=== PATIENT | female | born 1970 | race Caucasian/White ===

== ENCOUNTER 2018-08-09 00:36 | Inpatient (IN) | payer MEDICAID, OTHER ==
[~2018-08-09] VITALS: Ht 165.1 cm; Wt 84.8 kg
[2018-08-09] VITALS (8 sets, daily range): BP systolic 123–146; BP diastolic 75–90
[2018-08-09 08:35] LABS: CLARITY URINE CLOUDY (CLEAR); COLOR URINE YELLOW (YELLOW); KETONES URINE TRACE (NEGATIVE); LEUKOCYTE ESTERASE URINE NEGATIVE (NEGATIVE); NITRITE URINE NEGATIVE (NEGATIVE); OCCULT BLOOD URINE 2+ (NEGATIVE); PROTEIN URINE 4+ (NEGATIVE); SPECIFIC GRAVITY URINE 1.026 (1.005-1.030); UROBILINOGEN URINE 0.2 E.U./dL (0.2-1.0)
[2018-08-09 08:48] LABS: CHLORIDE 103 mEq/L (98-107)
[2018-08-09 09:02] LABS: BASOPHILS % 0.5 % (0.0-2.0); EOSINOPHILS % 0.3 % (0.0-5.0); HEMATOCRIT. 37.6 % (36.0-48.0); HEMOGLOBIN. 12.1 g/dL (12.0-16.0); MEAN CORPUSCULAR HEMOGLOBIN 28.6 pg (28.0-32.0); MEAN CORPUSCULAR VOLUME 88.5 fL (81.0-99.0); MEAN PLATELET VOLUME 9.8 fl (7.4-10.4); MONOCYTES % 6.4 % (2.0-8.0); NEUTROPHILS % 79.8 % (40.0-76.0); PLATELET 313 x1000/uL (130-400); RED BLOOD CELL COUNT 4.24 mill/uL (4.2-5.4); RED CELL DISTRIBUTION WIDTH 16.5 % (11.6-14.6)
[2018-08-09] MEDS ORDERED: CLONIDINE 0.1MG TABLET PO PRN ×2 (10:30)
[2018-08-09] MEDS ORDERED: ENOXAPARIN 60MG/0.6ML SYR SUBCUT NR (11:00)
[2018-08-09] MEDS ORDERED: SODIUM POLYSTYRENE SULFONATE 15 G/60 ML BOT PO NR (11:00)
[2018-08-09] MEDS: ASPIRIN 325MG EC TABLET PO SCH (11:04)
[2018-08-09] MEDS: AMLODIPINE 5MG TABLET PO SCH ×2 (11:04→21:48)
[2018-08-09] MEDS: NITROGLYCERIN OINT 1GM/INCH UDPKT TD SCH ×2 (11:05→18:10)
[2018-08-09] MEDS ORDERED: DOCUSATE SODIUM 100MG CAPSULE PO PRN (12:15)
[2018-08-09] MEDS ORDERED: ACETAMINOPHEN 325MG TABLET PO PRN (12:15)
[2018-08-09] MEDS ORDERED: NA PHOS,M-B/NA PHOS,DI-BA ENEMA 118ML PR PRN (12:15)
[2018-08-09] MEDS ORDERED: MAGNESIUM/ALUMINUM HYDROXIDE/SIMETHICONE 30ML UDC PO PRN (12:15)
[2018-08-09] MEDS ORDERED: ONDANSETRON HCL 4MG/2ML INJ IV PRN (12:15)
[2018-08-09] MEDS ORDERED: MORPHINE SULFATE 4 MG/ML CPJ (NOT FOR IM USE) IV PRN (12:15)
[2018-08-09] MEDS ORDERED: NITROGLYCERIN 0.4MG TABLET SL SL PRN (12:15)
[2018-08-09] MEDS ORDERED: TRAMADOL 50MG TABLET PO PRN (12:15)
[2018-08-09] MEDS: BLOOD SUGAR DIAGNOSTIC STRIP TEST SCH ×2 (17:51→21:48)
[2018-08-09] MEDS: INSULIN LISPRO 100 UNITS/ML SUBCUT SCH ×3 (17:51→21:00)
[2018-08-09] MEDS ORDERED: CLONIDINE 0.2MG TABLET PO PRN (19:30)
[2018-08-09] MEDS ORDERED: ZOLPIDEM TARTRATE 5MG TABLET PO PRN (21:30)
[2018-08-09] MEDS ORDERED: DEXTROSE 50% WATER 50ML SYRINGE IV PRN (21:30)
[2018-08-09] MEDS: FAMOTIDINE 20MG TABLET PO SCH (21:48)
[2018-08-09] MEDS: GUAIFENESIN 200MG/10ML SUGAR FREE UDC PO PRN (22:44)
[2018-08-10] VITALS (45 sets, daily range): BP systolic 122–181; BP diastolic 58–99
[2018-08-10] MEDS: NITROGLYCERIN OINT 1GM/INCH UDPKT TD SCH ×5 (01:21→23:18)
[2018-08-10] MEDS ORDERED: ASPI-1159 MT (06:05)
[2018-08-10] MEDS ORDERED: FURO40TA5 PO (06:05)
[2018-08-10] MEDS ORDERED: METF-816 MT (06:05)
[2018-08-10 06:29] LABS: BASOPHILS % 0.4 % (0.0-2.0); EOSINOPHILS % 0.6 % (0.0-5.0); HEMOGLOBIN. 11.3 g/dL (12.0-16.0); LYMPHOCYTES % 10.6 % (20.0-50.0); MEAN CORPUSCULAR VOLUME 95.8 fL (81.0-99.0); MEAN PLATELET VOLUME 9.9 fl (7.4-10.4); MONOCYTES % 6.8 % (2.0-8.0); NEUTROPHILS % 81.6 % (40.0-76.0); PLATELET 276 x1000/uL (130-400); RED BLOOD CELL COUNT 3.34 mill/uL (4.2-5.4); RED CELL DISTRIBUTION WIDTH 16.3 % (11.6-14.6)
[2018-08-10 06:37] LABS: D-DIMER 0.88 mg/L FEU (<0.50); INR 1.1; PROTHROMBIN TIME 11.5 sec (9.1-11.1)
[2018-08-10 07:01] LABS: CHLORIDE 106 mEq/L (98-107)
[2018-08-10 07:11] LABS: LDL CHOLESTEROL 114 mg/dL (5-100)
[2018-08-10 07:12] LABS: CREATINE KINASE 213 IU/L (26-192)
[2018-08-10 07:13] LABS: HDL CHOLESTEROL 28 mg/dL (40-59)
[2018-08-10] MEDS: INSULIN LISPRO 100 UNITS/ML SUBCUT SCH ×4 (08:20→20:28)
[2018-08-10] MEDS: ASPIRIN 325MG EC TABLET PO SCH (08:30)
[2018-08-10] MEDS: BLOOD SUGAR DIAGNOSTIC STRIP TEST SCH ×4 (08:30→20:28)
[2018-08-10] MEDS: AMLODIPINE 5MG TABLET PO SCH ×2 (08:31→20:14)
[2018-08-10] MEDS: ENOXAPARIN 80MG/0.8ML SYR SUBCUT SCH (08:31)
[2018-08-10 09:33] LABS: *AMPHETAMINES SCREEN URINE NEGATIVE (NEGATIVE); *BARBITURATES SCREEN URINE NEGATIVE (NEGATIVE)
[2018-08-10 09:34] LABS: *BENZODIAZEPINES SCREEN URINE NEGATIVE (NEGATIVE); *COCAINE SCREEN URINE NEGATIVE (NEGATIVE); CANNABINOID URINE SCREEN NEGATIVE (NEGATIVE); METHADONE URINE SCREEN NEGATIVE (NEGATIVE); OPIATES URINE SCREEN NEGATIVE (NEGATIVE)
[2018-08-10 09:35] LABS: PHENCYCLIDINE URINE SCREEN NEGATIVE (NEGATIVE)
[2018-08-10] MEDS ORDERED: SODIUM CHLORIDE 0.45% 500 ML IV SCH (09:45)
[2018-08-10] MEDS ORDERED: ALBUMIN HUMAN 25GM/100ML (25%) IV NR (16:30)
[2018-08-10] MEDS: FAMOTIDINE 20MG TABLET PO SCH (20:14)
[2018-08-10] MEDS: ATORVASTATIN CALCIUM 20MG TABLET PO SCH (20:14)
[2018-08-11] VITALS (38 sets, daily range): BP systolic 121–171; BP diastolic 73–99
[2018-08-11] MEDS: NITROGLYCERIN OINT 1GM/INCH UDPKT TD SCH ×4 (05:35→23:40)
[2018-08-11 06:25] LABS: HEMATOCRIT. 33.2 % (36.0-48.0); HEMOGLOBIN. 11.8 g/dL (12.0-16.0); MEAN CORPUSCULAR HEMOGLOBIN 33.7 pg (28.0-32.0); MEAN CORPUSCULAR VOLUME 94.8 fL (81.0-99.0); MEAN PLATELET VOLUME 9.6 fl (7.4-10.4); PLATELET 309 x1000/uL (130-400); RED BLOOD CELL COUNT 3.51 mill/uL (4.2-5.4); RED CELL DISTRIBUTION WIDTH 16.2 % (11.6-14.6)
[2018-08-11 06:59] LABS: CHLORIDE 105 mEq/L (98-107)
[2018-08-11 07:06] LABS: PHOSPHORUS 4.5 mg/dL (2.5-4.9)
[2018-08-11 07:07] LABS: CREATINE KINASE 143 IU/L (26-192)
[2018-08-11] MEDS: BLOOD SUGAR DIAGNOSTIC STRIP TEST SCH ×4 (07:50→20:58)
[2018-08-11] MEDS: AMLODIPINE 5MG TABLET PO SCH ×2 (08:39→20:45)
[2018-08-11] MEDS: ASPIRIN 325MG EC TABLET PO SCH (08:39)
[2018-08-11] MEDS: ENOXAPARIN 80MG/0.8ML SYR SUBCUT SCH (08:39)
[2018-08-11] MEDS: INSULIN LISPRO 100 UNITS/ML SUBCUT SCH ×4 (08:40→21:00)
[2018-08-11 08:52] LABS: PLATELET ESTIMATE NORMAL
[2018-08-11] MEDS: HYDRALAZINE HCL 50MG TABLET PO SCH ×2 (12:34→22:02)
[2018-08-11 16:31] LABS: HEPATITIS B SURFACE ANTIGEN NEGATIVE
[2018-08-11 16:58] LABS: HEPATITIS A AB IGM NEGATIVE (NEGATIVE)
[2018-08-11] MEDS: ATORVASTATIN CALCIUM 20MG TABLET PO SCH (20:44)
[2018-08-11] MEDS: FAMOTIDINE 20MG TABLET PO SCH (20:45)
[2018-08-12] VITALS (34 sets, daily range): BP systolic 75–140; BP diastolic 33–100
[2018-08-12] MEDS: NITROGLYCERIN OINT 1GM/INCH UDPKT TD SCH ×4 (05:20→23:25)
[2018-08-12] MEDS: HYDRALAZINE HCL 50MG TABLET PO SCH (05:21)
[2018-08-12 06:02] LABS: HEMATOCRIT. 34.7 % (36.0-48.0); HEMOGLOBIN. 11.4 g/dL (12.0-16.0); MEAN CORPUSCULAR VOLUME 91.4 fL (81.0-99.0); MEAN PLATELET VOLUME 9.2 fl (7.4-10.4); PLATELET 343 x1000/uL (130-400); RED CELL DISTRIBUTION WIDTH 16.3 % (11.6-14.6)
[2018-08-12 06:04] LABS: PARTIAL THROMBOPLASTIN TIME 33.6 sec (23.4-31.0); PROTHROMBIN TIME 10.4 sec (9.1-11.1)
[2018-08-12 06:23] LABS: PHOSPHORUS 4.1 mg/dL (2.5-4.9)
[2018-08-12 06:28] LABS: CREATINE KINASE MB FRACTION 2.6 ng/mL (0.5-3.6)
[2018-08-12] MEDS: ASPIRIN 325MG EC TABLET PO SCH (07:51)
[2018-08-12] MEDS: INSULIN LISPRO 100 UNITS/ML SUBCUT SCH ×4 (07:52→20:23)
[2018-08-12] MEDS: BLOOD SUGAR DIAGNOSTIC STRIP TEST SCH ×4 (07:52→20:24)
[2018-08-12] MEDS: AMLODIPINE 5MG TABLET PO SCH ×3 (07:53→20:24)
[2018-08-12 10:37] LABS: NUCLEATED RED BLOOD CELLS 1 /100 WBC; PLATELET ESTIMATE NORMAL
[2018-08-12] MEDS: CARVEDILOL 3.125 MG TABLET PO SCH ×2 (11:26→20:22)
[2018-08-12] MEDS ORDERED: FUROSEMIDE 40MG/4ML VIAL IVP SCH (13:00)
[2018-08-12] MEDS: HYDRALAZINE HCL 25MG TABLET PO SCH ×2 (13:15→22:00)
[2018-08-12] MEDS: ATORVASTATIN CALCIUM 20MG TABLET PO SCH (20:22)
[2018-08-12] MEDS: FAMOTIDINE 20MG TABLET PO SCH (20:22)
[2018-08-13] VITALS (34 sets, daily range): BP systolic 90–134; BP diastolic 48–79
[2018-08-13 05:35] LABS: CHLORIDE 105 mEq/L (98-107)
[2018-08-13 05:47] LABS: PHOSPHORUS 4.7 mg/dL (2.5-4.9)
[2018-08-13] MEDS: HYDRALAZINE HCL 25MG TABLET PO SCH ×3 (06:00→22:46)
[2018-08-13] MEDS: NITROGLYCERIN OINT 1GM/INCH UDPKT TD SCH ×3 (06:00→18:27)
[2018-08-13 06:04] LABS: HEMATOCRIT. 34.1 % (36.0-48.0); HEMOGLOBIN. 10.9 g/dL (12.0-16.0); MEAN CORPUSCULAR HEMOGLOBIN 28.5 pg (28.0-32.0); MEAN CORPUSCULAR VOLUME 89.2 fL (81.0-99.0); MEAN PLATELET VOLUME 9.3 fl (7.4-10.4); PLATELET 319 x1000/uL (130-400); RED BLOOD CELL COUNT 3.82 mill/uL (4.2-5.4); RED CELL DISTRIBUTION WIDTH 16.9 % (11.6-14.6)
[2018-08-13 07:17] LABS: PLATELET ESTIMATE NORMAL
[2018-08-13] MEDS: INSULIN LISPRO 100 UNITS/ML SUBCUT SCH ×4 (08:20→20:30)
[2018-08-13] MEDS: CARVEDILOL 3.125 MG TABLET PO SCH ×3 (08:23→22:47)
[2018-08-13] MEDS: BLOOD SUGAR DIAGNOSTIC STRIP TEST SCH ×4 (08:24→20:24)
[2018-08-13] MEDS: AMLODIPINE 5MG TABLET PO SCH ×2 (08:24→20:21)
[2018-08-13] MEDS: ASPIRIN 81MG EC TABLET PO SCH ×3 (08:24→17:53)
[2018-08-13] MEDS ORDERED: ALBUMIN HUMAN 25GM/100ML (25%) IV SCH (09:35)
[2018-08-13 10:26] LABS: BG BASE EXCESS -4.7 mmol/L (-2.0-2.0); BG CARBOXYHEMOGLOBIN 0.7 % (0.5-1.5); BG DEOXYHEMOGLOBIN 7.1 % (0.0-5.0); BG FRACTION INSPIRED OXYGEN 30; BG HCO3 ACT 18.5 mmol/L (22.0-26.0); BG METHEMOGLOBIN 0.2 % (0.0-1.5); BG OXYGEN SATURATION 92.8 % (92.0-98.5); BG PCO2 28.7 mmHg (35.0-45.0); BG PH 7.426 (7.350-7.450); BG PO2 69.9 mmHg (75.0-100.0); BG SAMPLE SITE RIGHT RADIAL; BG VENT MODE NASAL CANNULA
[2018-08-13] MEDS: ENOXAPARIN 30MG/0.3ML SYR SUBCUT SCH (14:19)
[2018-08-13] MEDS: ATORVASTATIN CALCIUM 20MG TABLET PO SCH (20:21)
[2018-08-13] MEDS: FAMOTIDINE 20MG TABLET PO SCH (20:21)
[2018-08-13] MEDS: GUAIFENESIN 200MG/10ML SUGAR FREE UDC PO PRN (20:30)
[2018-08-14] VITALS (19 sets, daily range): BP systolic 93–133; BP diastolic 53–72
[2018-08-14] MEDS: NITROGLYCERIN OINT 1GM/INCH UDPKT TD SCH ×5 (01:04→23:53)
[2018-08-14] MEDS: GUAIFENESIN 200MG/10ML SUGAR FREE UDC PO PRN ×2 (04:32→19:22)
[2018-08-14] MEDS: HYDRALAZINE HCL 25MG TABLET PO SCH ×3 (06:18→22:00)
[2018-08-14] MEDS: CARVEDILOL 3.125 MG TABLET PO SCH ×3 (06:19→22:00)
[2018-08-14] MEDS: BLOOD SUGAR DIAGNOSTIC STRIP TEST SCH ×4 (06:21→21:42)
[2018-08-14 06:50] LABS: BASOPHILS % 0.3 % (0.0-2.0); EOSINOPHILS % 0.1 % (0.0-5.0); HEMOGLOBIN. 10.1 g/dL (12.0-16.0); LYMPHOCYTES % 9.4 % (20.0-50.0); MEAN CORPUSCULAR HEMOGLOBIN 32.7 pg (28.0-32.0); MEAN CORPUSCULAR VOLUME 94.1 fL (81.0-99.0); MEAN PLATELET VOLUME 9.3 fl (7.4-10.4); MONOCYTES % 4.9 % (2.0-8.0); NEUTROPHILS % 85.3 % (40.0-76.0); PLATELET 292 x1000/uL (130-400); RED BLOOD CELL COUNT 3.08 mill/uL (4.2-5.4); RED CELL DISTRIBUTION WIDTH 16.2 % (11.6-14.6)
[2018-08-14] MEDS: INSULIN LISPRO 100 UNITS/ML SUBCUT SCH ×4 (07:20→21:00)
[2018-08-14 07:22] LABS: PHOSPHORUS 5.9 mg/dL (2.5-4.9)
[2018-08-14] MEDS: ASPIRIN 81MG EC TABLET PO SCH ×2 (08:50→17:17)
[2018-08-14] MEDS: AMLODIPINE 5MG TABLET PO SCH ×2 (08:51→21:00)
[2018-08-14] MEDS: FUROSEMIDE 40MG/4ML VIAL IVP SCH (14:06)
[2018-08-14] MEDS: ENOXAPARIN 30MG/0.3ML SYR SUBCUT SCH (14:07)
[2018-08-14] MEDS: ATORVASTATIN CALCIUM 20MG TABLET PO SCH (21:39)
[2018-08-14] MEDS: FAMOTIDINE 20MG TABLET PO SCH (21:39)
[2018-08-15] VITALS (16 sets, daily range): BP systolic 99–132; BP diastolic 39–82
[2018-08-15] MEDS: GUAIFENESIN 200MG/10ML SUGAR FREE UDC PO PRN ×4 (00:16→20:57)
[2018-08-15] MEDS: HYDRALAZINE HCL 25MG TABLET PO SCH ×3 (06:00→22:00)
[2018-08-15] MEDS: CARVEDILOL 3.125 MG TABLET PO SCH ×3 (06:33→22:31)
[2018-08-15] MEDS: NITROGLYCERIN OINT 1GM/INCH UDPKT TD SCH ×3 (06:33→17:21)
[2018-08-15] MEDS: BLOOD SUGAR DIAGNOSTIC STRIP TEST SCH ×4 (06:36→21:01)
[2018-08-15 06:54] LABS: INR 1.1; PARTIAL THROMBOPLASTIN TIME 32.2 sec (23.4-31.0); PROTHROMBIN TIME 11.2 sec (9.1-11.1)
[2018-08-15 07:11] LABS: BASOPHILS % 0.1 % (0.0-2.0); EOSINOPHILS % 0.2 % (0.0-5.0); HEMATOCRIT. 30.4 % (36.0-48.0); HEMOGLOBIN. 10.5 g/dL (12.0-16.0); LYMPHOCYTES % 8.2 % (20.0-50.0); MEAN CORPUSCULAR VOLUME 93.3 fL (81.0-99.0); MEAN PLATELET VOLUME 9.5 fl (7.4-10.4); MONOCYTES % 7.2 % (2.0-8.0); NEUTROPHILS % 84.3 % (40.0-76.0); PLATELET 317 x1000/uL (130-400); RED BLOOD CELL COUNT 3.26 mill/uL (4.2-5.4); RED CELL DISTRIBUTION WIDTH 16.7 % (11.6-14.6)
[2018-08-15] MEDS: INSULIN LISPRO 100 UNITS/ML SUBCUT SCH ×4 (07:20→21:00)
[2018-08-15 08:13] LABS: PHOSPHORUS 5.7 mg/dL (2.5-4.9)
[2018-08-15] MEDS: AMLODIPINE 5MG TABLET PO SCH ×2 (09:01→20:46)
[2018-08-15] MEDS: ASPIRIN 81MG EC TABLET PO SCH ×2 (09:02→16:25)
[2018-08-15] MEDS: FUROSEMIDE 40MG/4ML VIAL IVP SCH ×2 (09:02→20:46)
[2018-08-15] MEDS ORDERED: METOLAZONE 10MG TABLET PO NR (11:00)
[2018-08-15] MEDS: ENOXAPARIN 30MG/0.3ML SYR SUBCUT SCH (14:34)
[2018-08-15] MEDS: FAMOTIDINE 20MG TABLET PO SCH (20:46)
[2018-08-15] MEDS: ATORVASTATIN CALCIUM 20MG TABLET PO SCH (20:47)
[2018-08-16] VITALS (16 sets, daily range): BP systolic 111–139; BP diastolic 42–81
[2018-08-16] MEDS: IPRATROPIUM/ALBUTEROL 0.5-3(2.5)MG/3ML NEB INH PRN (00:31)
[2018-08-16] MEDS: NITROGLYCERIN OINT 1GM/INCH UDPKT TD SCH ×4 (00:53→17:23)
[2018-08-16] MEDS: GUAIFENESIN 200MG/10ML SUGAR FREE UDC PO PRN ×2 (01:05→05:58)
[2018-08-16] MEDS: HYDRALAZINE HCL 25MG TABLET PO SCH ×3 (05:58→21:30)
[2018-08-16] MEDS: BLOOD SUGAR DIAGNOSTIC STRIP TEST SCH ×4 (05:58→21:20)
[2018-08-16] MEDS: CARVEDILOL 3.125 MG TABLET PO SCH ×3 (06:01→21:31)
[2018-08-16 07:00] LABS: HEMATOCRIT. 29.1 % (36.0-48.0); HEMOGLOBIN. 10.2 g/dL (12.0-16.0); MEAN CORPUSCULAR HEMOGLOBIN 32.9 pg (28.0-32.0); MEAN CORPUSCULAR VOLUME 94.4 fL (81.0-99.0); MEAN PLATELET VOLUME 9.5 fl (7.4-10.4); PLATELET 331 x1000/uL (130-400); RED BLOOD CELL COUNT 3.09 mill/uL (4.2-5.4); RED CELL DISTRIBUTION WIDTH 16.2 % (11.6-14.6)
[2018-08-16] MEDS: INSULIN LISPRO 100 UNITS/ML SUBCUT SCH ×4 (07:20→21:29)
[2018-08-16] MEDS: AMLODIPINE 5MG TABLET PO SCH ×2 (08:02→21:30)
[2018-08-16] MEDS: ASPIRIN 81MG EC TABLET PO SCH ×2 (08:02→17:23)
[2018-08-16] MEDS: FUROSEMIDE 40MG/4ML VIAL IVP SCH ×2 (08:02→21:31)
[2018-08-16 10:54] LABS: NUCLEATED RED BLOOD CELLS 1 /100 WBC; PLATELET ESTIMATE NORMAL
[2018-08-16] MEDS: ENOXAPARIN 30MG/0.3ML SYR SUBCUT SCH (13:02)
[2018-08-16 13:06] LABS: A/G RATIO 0.7 (0.7-1.7); ALBUMIN 2.2 g/dL (2.9-4.4); ALPHA-1-GLOBULIN 0.4 g/dL (0.0-0.4); ALPHA-2-GLOBULIN 0.8 g/dL (0.4-1.0); BETA GLOBULIN 0.8 g/dL (0.7-1.3); GAMMA GLOBULINS 1.4 g/dL (0.4-1.8); GLOBULIN TOTAL 3.3 g/dL (2.2-3.9); M-SPIKE Not Observed g/dL (Not Observed); TOTAL PROTEIN SERUM 5.5 g/dL (6.0-8.5)
[2018-08-16] MEDS: CALCIUM ACETATE 667MG CAPSULE PO SCH (17:23)
[2018-08-16] MEDS: FAMOTIDINE 20MG TABLET PO SCH (21:30)
[2018-08-16] MEDS: ATORVASTATIN CALCIUM 20MG TABLET PO SCH (21:30)
[2018-08-17] VITALS (95 sets, daily range): BP systolic 49–239; BP diastolic 28–120
[2018-08-17] MEDS: NITROGLYCERIN OINT 1GM/INCH UDPKT TD SCH ×5 (01:03→17:56)
[2018-08-17] MEDS: PROPOFOL 10MG/ML 100ML 100 ML IV PRN ×3 (01:39→23:52)
[2018-08-17 01:52] LABS: BG BASE EXCESS -0.6 mmol/L (-2.0-2.0); BG CARBOXYHEMOGLOBIN 0.2 % (0.5-1.5); BG DEOXYHEMOGLOBIN 1.3 % (0.0-5.0); BG FRACTION INSPIRED OXYGEN 100; BG METHEMOGLOBIN 0.3 % (0.0-1.5); BG OXYGEN SATURATION 98.7 % (92.0-98.5); BG OXYHEMOGLOBIN 98.2 % (94.0-97.0); BG PCO2 29.9 mmHg (35.0-45.0); BG PH 7.484 (7.350-7.450); BG PO2 138.9 mmHg (75.0-100.0); BG SAMPLE SITE RIGHT RADIAL; BG TIDAL VOLUME(mL) 450 mL; BG TOTAL HEMOGLOBIN 12.1 g/dL (12.0-18.0); BG VENT MODE VENT - A/C; BG VENT RATE 14 set
[2018-08-17 03:24] LABS: HEMATOCRIT. 32.8 % (36.0-48.0); HEMOGLOBIN. 10.5 g/dL (12.0-16.0); MEAN CORPUSCULAR HEMOGLOBIN 28.7 pg (28.0-32.0); MEAN CORPUSCULAR VOLUME 89.5 fL (81.0-99.0); MEAN PLATELET VOLUME 9.3 fl (7.4-10.4); PLATELET 340 x1000/uL (130-400); RED BLOOD CELL COUNT 3.67 mill/uL (4.2-5.4); RED CELL DISTRIBUTION WIDTH 16.3 % (11.6-14.6)
[2018-08-17 03:32] LABS: PHOSPHORUS 4.7 mg/dL (2.5-4.9)
[2018-08-17] MEDS: CARVEDILOL 3.125 MG TABLET PO SCH ×3 (05:08→22:00)
[2018-08-17] MEDS: HYDRALAZINE HCL 25MG TABLET PO SCH ×3 (05:08→22:00)
[2018-08-17] MEDS ORDERED: AMIODARONE HCL 150 MG in DEXT 5% WATER 100 ML IV NR (05:15)
[2018-08-17 05:16] LABS: ALBUMIN URINE 48.2 % (.); ALPHA-1-GLOBULIN URINE 11.5 % (.); ALPHA-2-GLOBULIN URINE 11.4 % (.); BETA GLOBULIN URINE 11.5 % (.); GAMMA GLOBULIN URINE 17.4 % (.); TOTAL PROTEIN RANDOM URINE 703.2 mg/dL (Not Estab.)
[2018-08-17] MEDS: NOREPINEPHRINE 32 MG in DEXT 5% WATER 468 ML IV PRN (05:40)
[2018-08-17] MEDS: VASOPRESSIN 10 UNIT in SODIUM CHLORIDE 0.9% 99.5 ML IV PRN ×2 (05:41→09:25)
[2018-08-17] MEDS: PHENYLEPHRINE 40 MG in DEXT 5% WATER 246 ML IV PRN ×4 (05:42→15:31)
[2018-08-17] MEDS: AMIODARONE HCL 900 MG in DEXT 5% WATER 482 ML IV PRN (05:43)
[2018-08-17] MEDS: INSULIN LISPRO 100 UNITS/ML SUBCUT SCH ×3 (05:54→17:39)
[2018-08-17 06:10] LABS: BASOPHILS % 0.1 % (0.0-2.0); HEMOGLOBIN. 11.1 g/dL (12.0-16.0); LYMPHOCYTES % 8.8 % (20.0-50.0); MEAN CORPUSCULAR HEMOGLOBIN 30.4 pg (28.0-32.0); MEAN CORPUSCULAR VOLUME 93.3 fL (81.0-99.0); MEAN PLATELET VOLUME 9.9 fl (7.4-10.4); MONOCYTES % 3.7 % (2.0-8.0); NEUTROPHILS % 87.4 % (40.0-76.0); PLATELET 293 x1000/uL (130-400); RED BLOOD CELL COUNT 3.65 mill/uL (4.2-5.4)
[2018-08-17] MEDS: BLOOD SUGAR DIAGNOSTIC STRIP TEST SCH ×3 (06:13→17:29)
[2018-08-17 07:23] LABS: BG BASE EXCESS -6.5 mmol/L (-2.0-2.0); BG CARBOXYHEMOGLOBIN 0.8 % (0.5-1.5); BG DEOXYHEMOGLOBIN 10.6 % (0.0-5.0); BG HCO3 ACT 17.8 mmol/L (22.0-26.0); BG METHEMOGLOBIN 0.4 % (0.0-1.5); BG OXYGEN SATURATION 89.3 % (92.0-98.5); BG OXYHEMOGLOBIN 88.2 % (94.0-97.0); BG PCO2 31.7 mmHg (35.0-45.0); BG PH 7.367 (7.350-7.450); BG PO2 64.1 mmHg (75.0-100.0); BG SAMPLE SITE RIGHT RADIAL; BG TIDAL VOLUME(mL) 450 mL; BG TOTAL HEMOGLOBIN 12.3 g/dL (12.0-18.0); BG VENT MODE VENT - A/C; BG VENT RATE 14 set
[2018-08-17 08:00] LABS: PHOSPHORUS 5.5 mg/dL (2.5-4.9)
[2018-08-17] MEDS: ASPIRIN 81MG EC TABLET PO SCH ×2 (08:10→17:36)
[2018-08-17] MEDS: CALCIUM ACETATE 667MG CAPSULE PO SCH ×3 (08:10→17:36)
[2018-08-17] MEDS: AMLODIPINE 5MG TABLET PO SCH ×2 (08:11→21:00)
[2018-08-17 08:23] LABS: PLATELET ESTIMATE NORMAL
[2018-08-17] MEDS: FUROSEMIDE 40MG/4ML VIAL IVP SCH ×2 (08:46→22:47)
[2018-08-17] MEDS: IPRATROPIUM/ALBUTEROL 0.5-3(2.5)MG/3ML NEB INH PRN (09:16)
[2018-08-17 09:20] LABS: BG BASE EXCESS -2.2 mmol/L (-2.0-2.0); BG CARBOXYHEMOGLOBIN 0.5 % (0.5-1.5); BG DEOXYHEMOGLOBIN 8.7 % (0.0-5.0); BG FRACTION INSPIRED OXYGEN 100; BG HCO3 ACT 21.2 mmol/L (22.0-26.0); BG METHEMOGLOBIN 0.3 % (0.0-1.5); BG OXYGEN SATURATION 91.2 % (92.0-98.5); BG OXYHEMOGLOBIN 90.5 % (94.0-97.0); BG PCO2 32.2 mmHg (35.0-45.0); BG PH 7.437 (7.350-7.450); BG SAMPLE SITE RIGHT RADIAL; BG TIDAL VOLUME(mL) 450 mL; BG TOTAL HEMOGLOBIN 12.2 g/dL (12.0-18.0); BG VENT MODE VENT - A/C; BG VENT RATE 14 set
[2018-08-17] MEDS ORDERED: FUROSEMIDE 100MG/10ML VIAL IVP NR (11:00)
[2018-08-17] MEDS ORDERED: IOHEXOL-350 100 ML BOTTLE ONE (11:05)
[2018-08-17] MEDS ORDERED: IODIXANOL 320MG/ML 100 ML BOTTLE IV ONE (11:43)
[2018-08-17] MEDS ORDERED: LIDOCAINE HCL 1% 20ML VIAL (Pyxis) INJ ONE ×2 (11:43→12:25)
[2018-08-17] MEDS: ENOXAPARIN 30MG/0.3ML SYR SUBCUT SCH ×2 (13:02→17:38)
[2018-08-17] MEDS ORDERED: DEXTROSE 50% WATER 50ML SYRINGE IV ONE (14:14)
[2018-08-17] MEDS ORDERED: MAGNESIUM SULFATE 4G IN WATER 100ML PREMIX IV ONE ×2 (14:14→15:25)
[2018-08-17] MEDS ORDERED: SODIUM BICARBONATE 7.5% 0.9 MEQ/ML 50ML SYR IV ONE ×2 (14:14→15:25)
[2018-08-17] MEDS ORDERED: EPINEPHRINE 0.1MG/ML (1:10,000) 10ML SYR ONE ×2 (14:14→15:25)
[2018-08-17] MEDS ORDERED: HEPARIN SODIUM 1,000 UNIT/1ML VIAL IV ONE (14:59)
[2018-08-17] MEDS ORDERED: ATROPINE SULFATE 1MG/10ML SYR ONE (15:25)
[2018-08-17] MEDS ORDERED: CALCIUM CHLORIDE 1GM/10ML SYR IV ONE (15:25)
[2018-08-17] MEDS: IPRATROPIUM BROMIDE (0.02%) 0.5MG/2.5ML NEB HHN SCH ×2 (16:31→21:08)
[2018-08-17] MEDS ORDERED: ALBUMIN HUMAN 25GM/100ML (25%) IV SCH (19:45)
[2018-08-17] MEDS: FAMOTIDINE 20MG TABLET PO SCH (22:47)
[2018-08-17] MEDS: ATORVASTATIN CALCIUM 10MG TABLET PO SCH (23:08)
[2018-08-18] VITALS (126 sets, daily range): BP systolic 70–166; BP diastolic 47–88
[2018-08-18] MEDS: BLOOD SUGAR DIAGNOSTIC STRIP TEST SCH ×5 (00:13→23:58)
[2018-08-18] MEDS: PHENYLEPHRINE 80 MG in DEXT 5% WATER 492 ML IV PRN ×2 (00:14→23:23)
[2018-08-18] MEDS: INSULIN LISPRO 100 UNITS/ML SUBCUT SCH ×5 (00:17→23:57)
[2018-08-18] MEDS: IPRATROPIUM BROMIDE (0.02%) 0.5MG/2.5ML NEB HHN SCH ×6 (01:21→20:11)
[2018-08-18] MEDS ORDERED: PROPOFOL 10MG/ML 100ML 100 ML IV PRN (03:00)
[2018-08-18] MEDS: AMIODARONE HCL 900 MG in DEXT 5% WATER 482 ML IV PRN (05:38)
[2018-08-18] MEDS: HYDRALAZINE HCL 25MG TABLET PO SCH ×3 (05:40→22:00)
[2018-08-18] MEDS: CARVEDILOL 3.125 MG TABLET PO SCH ×3 (05:40→22:00)
[2018-08-18] MEDS: NITROGLYCERIN OINT 1GM/INCH UDPKT TD SCH ×5 (05:40→23:58)
[2018-08-18 07:20] LABS: BASOPHILS % 0.2 % (0.0-2.0); HEMOGLOBIN. 11.4 g/dL (12.0-16.0); LYMPHOCYTES % 7.5 % (20.0-50.0); MEAN CORPUSCULAR HEMOGLOBIN 29.8 pg (28.0-32.0); MEAN CORPUSCULAR VOLUME 91.2 fL (81.0-99.0); MEAN PLATELET VOLUME 9.6 fl (7.4-10.4); MONOCYTES % 5.6 % (2.0-8.0); NEUTROPHILS % 86.7 % (40.0-76.0); PLATELET 377 x1000/uL (130-400); RED BLOOD CELL COUNT 3.84 mill/uL (4.2-5.4); RED CELL DISTRIBUTION WIDTH 16.7 % (11.6-14.6)
[2018-08-18 07:41] LABS: CHLORIDE 100 mEq/L (98-107)
[2018-08-18] MEDS: CALCIUM ACETATE 667MG CAPSULE PO SCH ×3 (07:59→17:31)
[2018-08-18] MEDS: ASPIRIN 81MG EC TABLET PO SCH ×2 (07:59→17:08)
[2018-08-18] MEDS: FUROSEMIDE 40MG/4ML VIAL IVP SCH ×2 (07:59→20:54)
[2018-08-18] MEDS: AMLODIPINE 5MG TABLET PO SCH ×2 (07:59→20:20)
[2018-08-18] MEDS: NOREPINEPHRINE 32 MG in DEXT 5% WATER 468 ML IV PRN (08:00)
[2018-08-18 09:14] LABS: BG BASE EXCESS -1.4 mmol/L (-2.0-2.0); BG CARBOXYHEMOGLOBIN 0.2 % (0.5-1.5); BG DEOXYHEMOGLOBIN 3.6 % (0.0-5.0); BG FRACTION INSPIRED OXYGEN 60; BG HCO3 ACT 21.8 mmol/L (22.0-26.0); BG METHEMOGLOBIN 0.2 % (0.0-1.5); BG OXYGEN SATURATION 96.4 % (92.0-98.5); BG PCO2 31.7 mmHg (35.0-45.0); BG PH 7.455 (7.350-7.450); BG PO2 90.9 mmHg (75.0-100.0); BG SAMPLE SITE A-LINE; BG TIDAL VOLUME(mL) 450 mL; BG TOTAL HEMOGLOBIN 12.1 g/dL (12.0-18.0); BG VENT MODE VENT - A/C; BG VENT RATE 14 set
[2018-08-18] MEDS ORDERED: ALBUMIN HUMAN 25GM/100ML (25%) IV SCH (14:15)
[2018-08-18 14:23] LABS: BG BASE EXCESS -2.4 mmol/L (-2.0-2.0); BG CARBOXYHEMOGLOBIN 0.9 % (0.5-1.5); BG DEOXYHEMOGLOBIN 6.6 % (0.0-5.0); BG FRACTION INSPIRED OXYGEN 60; BG HCO3 ACT 20.8 mmol/L (22.0-26.0); BG METHEMOGLOBIN 0.3 % (0.0-1.5); BG OXYGEN SATURATION 93.3 % (92.0-98.5); BG OXYHEMOGLOBIN 92.2 % (94.0-97.0); BG PCO2 30.7 mmHg (35.0-45.0); BG PH 7.448 (7.350-7.450); BG PO2 70.9 mmHg (75.0-100.0); BG SAMPLE SITE A-LINE; BG TIDAL VOLUME(mL) 450 mL; BG TOTAL HEMOGLOBIN 12.1 g/dL (12.0-18.0); BG VENT MODE VENT - A/C; BG VENT RATE 14 set
[2018-08-18] MEDS: ENOXAPARIN 30MG/0.3ML SYR SUBCUT SCH (14:25)
[2018-08-18] MEDS: LORAZEPAM 2MG/ML CPJ IV PRN ×2 (14:26→20:29)
[2018-08-18] MEDS ORDERED: HEPARIN SODIUM 1,000 UNIT/1ML VIAL IV NR (15:30)
[2018-08-18] MEDS: ATORVASTATIN CALCIUM 10MG TABLET PO SCH (20:54)
[2018-08-18] MEDS: FAMOTIDINE 20MG TABLET PO SCH (20:54)
[2018-08-19] VITALS (93 sets, daily range): BP systolic 72–191; BP diastolic 28–88
[2018-08-19] MEDS: IPRATROPIUM BROMIDE (0.02%) 0.5MG/2.5ML NEB HHN SCH ×6 (00:08→21:14)
[2018-08-19] MEDS: LORAZEPAM 2MG/ML CPJ IV PRN ×2 (04:31→08:57)
[2018-08-19] MEDS: NITROGLYCERIN OINT 1GM/INCH UDPKT TD SCH ×3 (06:00→17:24)
[2018-08-19] MEDS: HYDRALAZINE HCL 25MG TABLET PO SCH ×3 (06:00→22:00)
[2018-08-19] MEDS: CARVEDILOL 3.125 MG TABLET PO SCH ×3 (06:00→22:00)
[2018-08-19] MEDS: INSULIN LISPRO 100 UNITS/ML SUBCUT SCH ×3 (06:10→17:24)
[2018-08-19] MEDS: BLOOD SUGAR DIAGNOSTIC STRIP TEST SCH ×3 (06:11→17:24)
[2018-08-19 06:26] LABS: HEMATOCRIT. 30.2 % (36.0-48.0); HEMOGLOBIN. 10.9 g/dL (12.0-16.0); MEAN CORPUSCULAR HEMOGLOBIN 33.7 pg (28.0-32.0); MEAN CORPUSCULAR VOLUME 93.8 fL (81.0-99.0); MEAN PLATELET VOLUME 9.5 fl (7.4-10.4); PLATELET 334 x1000/uL (130-400); RED BLOOD CELL COUNT 3.22 mill/uL (4.2-5.4); RED CELL DISTRIBUTION WIDTH 16.6 % (11.6-14.6)
[2018-08-19 06:41] LABS: PHOSPHORUS 4.7 mg/dL (2.5-4.9)
[2018-08-19 07:23] LABS: NUCLEATED RED BLOOD CELLS 1 /100 WBC; PLATELET ESTIMATE NORMAL
[2018-08-19] MEDS: AMLODIPINE 5MG TABLET PO SCH ×2 (08:11→21:00)
[2018-08-19] MEDS: PHENYLEPHRINE 80 MG in DEXT 5% WATER 492 ML IV PRN (08:45)
[2018-08-19] MEDS: ASPIRIN 81MG EC TABLET PO SCH ×2 (09:27→17:21)
[2018-08-19] MEDS: CALCIUM ACETATE 667MG CAPSULE PO SCH ×3 (09:27→17:21)
[2018-08-19] MEDS ORDERED: LIDOCAINE HCL 1% 20ML VIAL (Pyxis) INJ ONE (10:49)
[2018-08-19] MEDS: PROPOFOL 10MG/ML 100ML 100 ML IV PRN ×2 (11:00→21:22)
[2018-08-19] MEDS: FUROSEMIDE 40MG/4ML VIAL IVP SCH (12:47)
[2018-08-19] MEDS: ENOXAPARIN 30MG/0.3ML SYR SUBCUT SCH (13:57)
[2018-08-19 14:15] LABS: BG BASE EXCESS -4.4 mmol/L (-2.0-2.0); BG CARBOXYHEMOGLOBIN 0.3 % (0.5-1.5); BG DEOXYHEMOGLOBIN 2.2 % (0.0-5.0); BG FRACTION INSPIRED OXYGEN 70; BG HCO3 ACT 18.3 mmol/L (22.0-26.0); BG METHEMOGLOBIN 0.3 % (0.0-1.5); BG OXYGEN SATURATION 97.8 % (92.0-98.5); BG OXYHEMOGLOBIN 97.2 % (94.0-97.0); BG PCO2 26.6 mmHg (35.0-45.0); BG PH 7.456 (7.350-7.450); BG PO2 113.4 mmHg (75.0-100.0); BG SAMPLE SITE A-LINE; BG TIDAL VOLUME(mL) 450 mL; BG TOTAL HEMOGLOBIN 10.9 g/dL (12.0-18.0); BG VENT MODE VENT - A/C; BG VENT RATE 14 set
[2018-08-19] MEDS: AMIODARONE HCL 200 MG TABLET PO SCH ×2 (17:21→21:21)
[2018-08-19] MEDS: FAMOTIDINE 20MG TABLET PO SCH (21:21)
[2018-08-19] MEDS: ATORVASTATIN CALCIUM 10MG TABLET PO SCH (21:21)
[2018-08-20] VITALS (130 sets, daily range): BP systolic 43–266; BP diastolic 2–112
[2018-08-20] MEDS ORDERED: FUROSEMIDE 40MG/4ML VIAL IVP SCH
[2018-08-20] MEDS: BLOOD SUGAR DIAGNOSTIC STRIP TEST SCH ×4 (00:22→18:12)
[2018-08-20] MEDS: INSULIN LISPRO 100 UNITS/ML SUBCUT SCH ×4 (00:31→18:21)
[2018-08-20] MEDS: IPRATROPIUM BROMIDE (0.02%) 0.5MG/2.5ML NEB HHN SCH ×6 (00:42→20:52)
[2018-08-20 04:54] LABS: BG BASE EXCESS 2.1 mmol/L (-2.0-2.0); BG CARBOXYHEMOGLOBIN 0.2 % (0.5-1.5); BG DEOXYHEMOGLOBIN 3.5 % (0.0-5.0); BG FRACTION INSPIRED OXYGEN 70; BG HCO3 ACT 25.7 mmol/L (22.0-26.0); BG METHEMOGLOBIN 0.2 % (0.0-1.5); BG OXYGEN SATURATION 96.5 % (92.0-98.5); BG OXYHEMOGLOBIN 96.1 % (94.0-97.0); BG PCO2 36.7 mmHg (35.0-45.0); BG PH 7.463 (7.350-7.450); BG PO2 86.6 mmHg (75.0-100.0); BG SAMPLE SITE A-LINE; BG TIDAL VOLUME(mL) 450 mL; BG TOTAL HEMOGLOBIN 12.3 g/dL (12.0-18.0); BG VENT MODE VENT - A/C; BG VENT RATE 14 set
[2018-08-20] MEDS: HYDRALAZINE HCL 25MG TABLET PO SCH ×3 (05:38→22:00)
[2018-08-20] MEDS: CARVEDILOL 3.125 MG TABLET PO SCH ×3 (05:38→22:00)
[2018-08-20] MEDS: NITROGLYCERIN OINT 1GM/INCH UDPKT TD SCH ×4 (05:39→18:00)
[2018-08-20 05:58] LABS: MEAN CORPUSCULAR HEMOGLOBIN 30.5 pg (28.0-32.0); MEAN CORPUSCULAR VOLUME 91.7 fL (81.0-99.0); MEAN PLATELET VOLUME 9.1 fl (7.4-10.4); PLATELET 303 x1000/uL (130-400); RED CELL DISTRIBUTION WIDTH 16.4 % (11.6-14.6)
[2018-08-20] MEDS: AMIODARONE HCL 200 MG TABLET PO SCH ×2 (06:05→13:46)
[2018-08-20 06:14] LABS: PHOSPHORUS 2.9 mg/dL (2.5-4.9)
[2018-08-20] MEDS: NOREPINEPHRINE 32 MG in DEXT 5% WATER 468 ML IV PRN (07:01)
[2018-08-20 07:09] LABS: PLATELET ESTIMATE NORMAL
[2018-08-20] MEDS: PROPOFOL 10MG/ML 100ML 100 ML IV PRN (07:48)
[2018-08-20] MEDS: FUROSEMIDE 40MG/4ML VIAL IVP SCH (08:42)
[2018-08-20] MEDS: ASPIRIN 81MG EC TABLET PO SCH ×2 (08:42→17:00)
[2018-08-20] MEDS: AMLODIPINE 5MG TABLET PO SCH ×2 (08:42→21:00)
[2018-08-20] MEDS: CALCIUM ACETATE 667MG CAPSULE PO SCH ×3 (08:42→18:12)
[2018-08-20] MEDS: PIPERACILLIN/TAZ 2.25G PREMIX 50 ML IV SCH ×2 (10:51→18:19)
[2018-08-20] MEDS ORDERED: VANCOMYCIN 1500MG in DEXTROSE 5% WATER 250ML IV NR (11:00)
[2018-08-20] MEDS ORDERED: KCL 20MEQ/100ML PREMIX 100 ML IV NR ×2 (11:00→17:45)
[2018-08-20] MEDS: ACETYLCYSTEINE 100MG/ML 10% VIAL 4ML INH SCH (12:57)
[2018-08-20] MEDS: ENOXAPARIN 30MG/0.3ML SYR SUBCUT SCH (13:47)
[2018-08-20] MEDS ORDERED: DOPAMINE 400MG/250ML PREMIX 250 ML IV ONE (17:41)
[2018-08-20 17:47] LABS: BG BASE EXCESS -12.4 mmol/L (-2.0-2.0); BG CARBOXYHEMOGLOBIN 0.5 % (0.5-1.5); BG DEOXYHEMOGLOBIN 3.7 % (0.0-5.0); BG METHEMOGLOBIN 0.3 % (0.0-1.5); BG OXYGEN SATURATION 96.3 % (92.0-98.5); BG OXYHEMOGLOBIN 95.5 % (94.0-97.0); BG PCO2 34.2 mmHg (35.0-45.0); BG PH 7.231 (7.350-7.450); BG PO2 103.6 mmHg (75.0-100.0); BG SAMPLE SITE A-LINE; BG TIDAL VOLUME(mL) 500 mL; BG TOTAL HEMOGLOBIN 13.2 g/dL (12.0-18.0); BG VENT MODE VENT - A/C; BG VENT RATE 14 set
[2018-08-20] MEDS ORDERED: LIDOCAINE 2G PREMIX 500 ML IV NR (17:48)
[2018-08-20] MEDS ORDERED: LIDOCAINE 2G PREMIX 500 ML IV SCH (18:00)
[2018-08-20] MEDS ORDERED: DOPAMINE 400MG/250ML PREMIX 250 ML IV PRN (18:15)
[2018-08-20] MEDS ORDERED: AMIODARONE HCL 900 MG in DEXT 5% WATER 482 ML IV SCH (18:30)
[2018-08-20] MEDS ORDERED: AMIODARONE HCL 150 MG in DEXT 5% WATER 100 ML IV NR (18:30)
[2018-08-20] MEDS: DOPAMINE 400MG/250ML PREMIX 250 ML IV PRN (18:35)
[2018-08-20] MEDS ORDERED: LIDOCAINE 2 GM IV SCH (19:04)
[2018-08-20] MEDS: LIDOCAINE 2G PREMIX 500 ML IV SCH (19:15)
[2018-08-20 20:23] LABS: HEMATOCRIT. 36.7 % (36.0-48.0); HEMOGLOBIN. 11.8 g/dL (12.0-16.0); MEAN CORPUSCULAR HEMOGLOBIN 28.3 pg (28.0-32.0); MEAN CORPUSCULAR VOLUME 88.3 fL (81.0-99.0); MEAN PLATELET VOLUME 9.5 fl (7.4-10.4); PLATELET 296 x1000/uL (130-400); RED BLOOD CELL COUNT 4.16 mill/uL (4.2-5.4); RED CELL DISTRIBUTION WIDTH 16.6 % (11.6-14.6)
[2018-08-20 20:44] LABS: BG CARBOXYHEMOGLOBIN 0.4 % (0.5-1.5); BG DEOXYHEMOGLOBIN 18.8 % (0.0-5.0); BG FRACTION INSPIRED OXYGEN 100; BG HCO3 ACT 25.1 mmol/L (22.0-26.0); BG METHEMOGLOBIN 0.3 % (0.0-1.5); BG OXYGEN SATURATION 81.1 % (92.0-98.5); BG OXYHEMOGLOBIN 80.5 % (94.0-97.0); BG PCO2 38.4 mmHg (35.0-45.0); BG PH 7.434 (7.350-7.450); BG PO2 46.5 mmHg (75.0-100.0); BG SAMPLE SITE A-LINE; BG TIDAL VOLUME(mL) 500 mL; BG TOTAL HEMOGLOBIN 12.5 g/dL (12.0-18.0); BG VENT MODE VENT - A/C; BG VENT RATE 16 set
[2018-08-20 21:34] LABS: PLATELET ESTIMATE NORMAL
[2018-08-20] MEDS: FAMOTIDINE 20MG TABLET PO SCH (21:50)
[2018-08-20] MEDS: ATORVASTATIN CALCIUM 10MG TABLET PO SCH (21:50)
[2018-08-21] VITALS (136 sets, daily range): BP systolic 8–293; BP diastolic -24–111
[2018-08-21] MEDS: ACETYLCYSTEINE 100MG/ML 10% VIAL 4ML INH SCH ×2 (00:49→08:27)
[2018-08-21] MEDS: IPRATROPIUM BROMIDE (0.02%) 0.5MG/2.5ML NEB HHN SCH ×4 (00:49→12:04)
[2018-08-21] MEDS: PIPERACILLIN/TAZ 2.25G PREMIX 50 ML IV SCH ×2 (01:28→10:20)
[2018-08-21] MEDS ORDERED: LIDOCAINE HCL 2% 5ML SYRINGE IV ONE (03:40)
[2018-08-21] MEDS ORDERED: CALCIUM CHLORIDE 1GM/10ML SYR IV ONE (03:40)
[2018-08-21] MEDS ORDERED: EPINEPHRINE 0.1MG/ML (1:10,000) 10ML SYR ONE (03:40)
[2018-08-21] MEDS ORDERED: MAGNESIUM SULFATE 4G IN WATER 100ML PREMIX IV ONE (03:40)
[2018-08-21] MEDS ORDERED: SODIUM BICARBONATE 7.5% 0.9 MEQ/ML 50ML SYR IV ONE (03:40)
[2018-08-21] MEDS ORDERED: ATROPINE SULFATE 1MG/10ML SYR ONE (03:40)
[2018-08-21] MEDS ORDERED: AMIODARONE HCL 50MG/ML 3ML VIAL IV ONE (03:40)
[2018-08-21 05:54] LABS: BG BASE EXCESS -0.1 mmol/L (-2.0-2.0); BG CARBOXYHEMOGLOBIN 0.5 % (0.5-1.5); BG DEOXYHEMOGLOBIN 2.4 % (0.0-5.0); BG FRACTION INSPIRED OXYGEN 100; BG HCO3 ACT 20.9 mmol/L (22.0-26.0); BG METHEMOGLOBIN 0.3 % (0.0-1.5); BG OXYGEN SATURATION 97.6 % (92.0-98.5); BG OXYHEMOGLOBIN 96.8 % (94.0-97.0); BG PCO2 24.4 mmHg (35.0-45.0); BG PO2 98.3 mmHg (75.0-100.0); BG SAMPLE SITE A-LINE; BG TIDAL VOLUME(mL) 500 mL; BG TOTAL HEMOGLOBIN 12.2 g/dL (12.0-18.0); BG VENT MODE VENT - A/C; BG VENT RATE 20 set
[2018-08-21] MEDS: HYDRALAZINE HCL 25MG TABLET PO SCH ×2 (05:59→14:00)
[2018-08-21] MEDS: NITROGLYCERIN OINT 1GM/INCH UDPKT TD SCH ×2 (06:00)
[2018-08-21] MEDS: CARVEDILOL 3.125 MG TABLET PO SCH ×2 (06:00→14:00)
[2018-08-21] MEDS: INSULIN LISPRO 100 UNITS/ML SUBCUT SCH ×3 (06:06→12:00)
[2018-08-21] MEDS: BLOOD SUGAR DIAGNOSTIC STRIP TEST SCH ×3 (06:25→12:17)
[2018-08-21 06:34] LABS: HEMATOCRIT. 35.6 % (36.0-48.0); HEMOGLOBIN. 11.5 g/dL (12.0-16.0); MEAN CORPUSCULAR HEMOGLOBIN 28.5 pg (28.0-32.0); MEAN CORPUSCULAR VOLUME 88.2 fL (81.0-99.0); MEAN PLATELET VOLUME 9.7 fl (7.4-10.4); PLATELET 293 x1000/uL (130-400); RED BLOOD CELL COUNT 4.04 mill/uL (4.2-5.4); RED CELL DISTRIBUTION WIDTH 16.3 % (11.6-14.6)
[2018-08-21 07:10] LABS: PHOSPHORUS 3.5 mg/dL (2.5-4.9)
[2018-08-21 08:10] LABS: HIV SCREEN 4G Non Reactive (Non Reactive)
[2018-08-21] MEDS: CALCIUM ACETATE 667MG CAPSULE PO SCH ×2 (08:20→13:20)
[2018-08-21] MEDS: ASPIRIN 81MG EC TABLET PO SCH (09:00)
[2018-08-21] MEDS: AMLODIPINE 5MG TABLET PO SCH (09:00)
[2018-08-21] MEDS: FUROSEMIDE 40MG/4ML VIAL IVP SCH (09:00)
[2018-08-21] MEDS: DOPAMINE 400MG/250ML PREMIX 250 ML IV PRN (10:17)
[2018-08-21] MEDS: LIDOCAINE 2G PREMIX 500 ML IV SCH (10:23)
[2018-08-21 10:31] LABS: BG BASE EXCESS -0.3 mmol/L (-2.0-2.0); BG CARBOXYHEMOGLOBIN 0.3 % (0.5-1.5); BG DEOXYHEMOGLOBIN 1.5 % (0.0-5.0); BG FRACTION INSPIRED OXYGEN 100; BG HCO3 ACT 22.3 mmol/L (22.0-26.0); BG METHEMOGLOBIN 0.2 % (0.0-1.5); BG OXYGEN SATURATION 98.5 % (92.0-98.5); BG PCO2 30.2 mmHg (35.0-45.0); BG PH 7.487 (7.350-7.450); BG PO2 140.6 mmHg (75.0-100.0); BG SAMPLE SITE A-LINE; BG TIDAL VOLUME(mL) 500 mL; BG TOTAL HEMOGLOBIN 11.6 g/dL (12.0-18.0); BG VENT MODE VENT - A/C; BG VENT RATE 16 set
[2018-08-21 12:05] LABS: BG BASE EXCESS -2.8 mmol/L (-2.0-2.0); BG CARBOXYHEMOGLOBIN 0.1 % (0.5-1.5); BG DEOXYHEMOGLOBIN 5.2 % (0.0-5.0); BG FRACTION INSPIRED OXYGEN 100; BG HCO3 ACT 19.9 mmol/L (22.0-26.0); BG METHEMOGLOBIN 0.3 % (0.0-1.5); BG OXYGEN SATURATION 94.8 % (92.0-98.5); BG OXYHEMOGLOBIN 94.4 % (94.0-97.0); BG PCO2 28.4 mmHg (35.0-45.0); BG PH 7.463 (7.350-7.450); BG PO2 78.1 mmHg (75.0-100.0); BG SAMPLE SITE A-LINE; BG TIDAL VOLUME(mL) 500 mL; BG TOTAL HEMOGLOBIN 12.2 g/dL (12.0-18.0); BG VENT MODE VENT - A/C; BG VENT RATE 16 set
[2018-08-21] MEDS ORDERED: PHENYLEPHRINE 80 MG in SODIUM CHLORIDE 0.9% 492 ML IV PRN (12:09)
[2018-08-21] MEDS ORDERED: NOREPINEPHRINE 32 MG in SODIUM CHLORIDE 0.9% 468 ML IV PRN (12:30)
[2018-08-21] MEDS: ENOXAPARIN 30MG/0.3ML SYR SUBCUT SCH (14:00)
[2018-08-21 14:41] LABS: PLATELET ESTIMATE NORMAL
== END 2018-08-21 18:00 | disposition expired | DRG 190 ==
LOC: ER 00:36 → CVICU 10:38 → ENRESERV 12:06 → CANRESERV 12:06 → CANBEDREQ 13:29 → EDBEDREQ 13:30 → CANBEDREQ 13:34 → EDBEDREQSVC 13:54 → ENRESERV 18:43 → 3WST 08-13 15:33 → CVICU 08-16 23:40
PROVIDERS: ADMIT Internal Medicine; ATTEND Internal Medicine
PROC: 0BH18EZ Insertion of Endotracheal Airway into Trachea, Via Natural or Artificial Opening Endoscopic (ICD-10-PCS; principal; 2018-08-16)
PROC: 5A1955Z Respiratory Ventilation, Greater than 96 Consecutive Hours (ICD-10-PCS; 2018-08-16)
PROC: B548ZZA Ultrasonography of Superior Vena Cava, Guidance (ICD-10-PCS; 2018-08-16)
PROC: 02HV33Z Insertion of Infusion Device into Superior Vena Cava, Percutaneous Approach (ICD-10-PCS; 2018-08-16)
PROC: B5181ZA Fluoroscopy of Superior Vena Cava using Low Osmolar Contrast, Guidance (ICD-10-PCS; 2018-08-16)
PROC: 5A12012 Performance of Cardiac Output, Single, Manual (ICD-10-PCS; 2018-08-17)
PROC: 5A1D70Z Performance of Urinary Filtration, Intermittent, Less than 6 Hours Per Day (ICD-10-PCS; 2018-08-17)
PROC: 4A023N7 Measurement of Cardiac Sampling and Pressure, Left Heart, Percutaneous Approach (ICD-10-PCS; 2018-08-17)
PROC: B2111ZZ Fluoroscopy of Multiple Coronary Arteries using Low Osmolar Contrast (ICD-10-PCS; 2018-08-17)
PROC: B2151ZZ Fluoroscopy of Left Heart using Low Osmolar Contrast (ICD-10-PCS; 2018-08-17)
PROC: 02HV33Z Insertion of Infusion Device into Superior Vena Cava, Percutaneous Approach (ICD-10-PCS; 2018-08-19)
PROC: B548ZZA Ultrasonography of Superior Vena Cava, Guidance (ICD-10-PCS; 2018-08-19)
PROC: 5A1D70Z Performance of Urinary Filtration, Intermittent, Less than 6 Hours Per Day (ICD-10-PCS; 2018-08-19)
PROC: 5A1D70Z Performance of Urinary Filtration, Intermittent, Less than 6 Hours Per Day (ICD-10-PCS; 2018-08-20)
PROC: 5A12012 Performance of Cardiac Output, Single, Manual (ICD-10-PCS; 2018-08-20)
PROC: 5A12012 Performance of Cardiac Output, Single, Manual (ICD-10-PCS; 2018-08-21)
DX: I21.4 Non-ST elevation (NSTEMI) myocardial infarction (principal); J96.01 Acute respiratory failure with hypoxia; N17.0 Acute kidney failure with tubular necrosis; G92 Toxic encephalopathy; E43 Unspecified severe protein-calorie malnutrition; I50.23 Acute on chronic systolic (congestive) heart failure; I13.2 Hypertensive heart and chronic kidney disease with heart failure and with stage 5 chronic kidney disease, or end stage renal disease; N18.6 End stage renal disease; I31.3 Pericardial effusion (noninflammatory); I49.01 Ventricular fibrillation; I25.5 Ischemic cardiomyopathy; E78.5 Hyperlipidemia, unspecified; E87.5 Hyperkalemia; E78.00 Pure hypercholesterolemia, unspecified; D64.9 Anemia, unspecified; B97.89 Other viral agents as the cause of diseases classified elsewhere; E11.22 Type 2 diabetes mellitus with diabetic chronic kidney disease; E11.65 Type 2 diabetes mellitus with hyperglycemia; E87.1 Hypo-osmolality and hyponatremia; I25.10 Atherosclerotic heart disease of native coronary artery without angina pectoris; N18.2 Chronic kidney disease, stage 2 (mild); R74.0 Nonspecific elevation of levels of transaminase and lactic acid dehydrogenase [LDH]; E87.6 Hypokalemia; I45.2 Bifascicular block; Z78.1 Physical restraint status; Z79.4 Long term (current) use of insulin; Z82.49 Family history of ischemic heart disease and other diseases of the circulatory system; Z83.3 Family history of diabetes mellitus; Z68.31 Body mass index [BMI] 31.0-31.9, adult
CPT/HCPCS: 36415; 36569; 36600; 71045; 71275; 76700; 76937; 77001; 78580; 80048; 80061; 80076; 80202; 80305; 82375; 82550; 82553; 82805; 82962; 83036; 83735; 83880; 84100; 84155; 84156; 84165; 84166; 84443; 84478; 84484; 85379; 86705; 86709; 86803; 87070; 87340; 87389; 93005; 93306; 93458; 93923; 93970; 94003; 94640; 96372; 99285; C1725; C1726; C1752; C1769; C1887; C1893; J0282; J0461; J1265; J1644; J1650; J1815; J1940; J2001; J2060; J2370; J2543; J2704; J3370; J3475; J3480; J3490; J7040; J7050; J7060; J7608; J7620; P9047; Q9967; A4315